=== PATIENT | female | born 1980 | race Caucasian/White ===

== ENCOUNTER 2022-02-10 05:32 | Emergency (ER) | payer OTHER ==
[~2022-02-10] VITALS: Ht 157.5 cm; Wt 66.2 kg
[2022-02-10 05:32] VITALS: BP 145/107
--- NOTE | 2022-02-10 05:35 | NUR ---
PT ROSINA LOERA, TAKEN TO CHAIR B
[2022-02-10 06:12] VITALS: BP 145/107
--- NOTE | 2022-02-10 06:12 | NUR ---
Patient discharged with v/s stable. Written and verbal after care instructions given and explained. Patient verbalized understanding. Police with in custody. All questions addressed prior to discharge. Advised to follow up with PMD.
== END 2022-02-10 06:12 ==
LOC: MED 05:32
DX: Z02.89 Encounter for other administrative examinations (principal); V49.88XA Car occupant (driver) (passenger) injured in other specified transport accidents, initial encounter; Y93.89 Activity, other specified; Y92.89 Other specified places as the place of occurrence of the external cause; Y99.8 Other external cause status
CPT/HCPCS: 99283